=== PATIENT | male | born 1975 | race Caucasian/White ===

== ENCOUNTER 2023-01-09 10:16 | Emergency (ER) | payer OTHER, BC, SELFPAY ==
[2023-01-09 10:26] VITALS: BP 173/104; PULSE 100; RESP 18; TEMP 36.4; O2SAT 96; BMI 37.4
--- NOTE | 2023-01-09 10:46 | XR_ITS ---
FINAL REPORT CLINICAL HISTORY: twisting pain and swelling FINDINGS: Left knee Three views were obtained. There is no acute fracture or dislocation. The joint space is preserved. There is a small joint effusion. IMPRESSION: A small joint effusion. Reviewed, Interpreted and Dictated by Henrique Rocha III, MD Transcribed by Maryana Carrington Authenticated and [facility]
--- NOTE | 2023-01-09 10:46 | XR_ITS ---
FINAL REPORT CLINICAL HISTORY: L knee pain, traumatic FINDINGS: Left tibia fibula Two views were obtained. There is no acute fracture or dislocation. The joint spaces appear normal. No soft tissue abnormality is identified. IMPRESSION: No acute process. Reviewed, Interpreted and Dictated by Henrique Rocha III, MD Transcribed by Maryana Carrington Authenticated and [facility]
--- NOTE | 2023-01-09 10:46 | XR_ITS ---
FINAL REPORT CLINICAL HISTORY: L knee pain and swelling FINDINGS: Left femur Two views were obtained. There is no acute fracture or dislocation. The joint spaces appear normal. No soft tissue abnormality is identified. IMPRESSION: No acute process. Reviewed, Interpreted and Dictated by Henrique Rocha III, MD Transcribed by Maryana Carrington Authenticated and [facility]
--- NOTE | 2023-01-09 10:56 | PC.NURSE ---
Rounded on patient; no needs at this time. Family at BS. Call arvizu within reach
--- NOTE | 2023-01-09 11:06 | HMH.EDGENADL ---
Discharge Plan Disposition Patient Disposition: Home, Self-Care Chief Complaint: Extremity Injury, Lower Referrals Follow up/Referrals: Estuardo Trotter [Primary Care Provider] - See instructions Yohannes Contreras JR, MD [Physician] - See instructions (Left knee sprain, concern for meniscus injury) Activity Restrictions/Add. Instructions Additional Instructions/Restrictions: Follow-up with orthopedics, you can call the number here to follow-up with Dr. Contreras. Take Tylenol 1000 mg every 6 hours (4 times daily) and ibuprofen 400 mg every 6 hours (4 times daily) as needed with food and water to prevent GI upset and kidney damage. Call your family doctor to establish care for this visit to the emergency department and schedule follow-up within 48 hours to ensure improvement. If you have any worsening of your condition or any other concerning signs or symptoms, return to the emergency department or your primary care doctor for further evaluation. Weightbearing as tolerated on your left leg using crutches as needed Clinical Impressions Clinical Impression: Knee sprain Qualifiers: Encounter type: initial encounter Involved ligament of knee: unspecified ligament Laterality: left Qualified Code(s): S83.92XA - Sprain of unspecified site of left knee, initial encounter Discharge ED Provider: [facility] General Chief complaint: Extremity Injury, Lower Stated complaint: WC 01/09/23 08:30 left knee pain Time Seen by Provider: 01/09/23 10:23 Mode of Arrival: Ambulatory Source of Information: Patient Limitations: No Limitations Description of Symptoms (Recalled from ER Triage Doc. 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 Patient states that he was stepping down off of a horse trailer at work when he felt his knee twist, pop, immediate pain. He had swelling posterior aspect of his knee that extends down his leg. No evidence of outward signs of deformity or bruising. No numbness, tingling, weakness. Pain currently mild when not bearing weight, patient states pain is so severe he cannot bear weight when attempting to. Has not taken anything for pain. Related Data Allergies Allergy/AdvReac Type Severity Reaction Status Date / Time No Known Allergies Allergy Verified 08/17/19 00:34 [facility] Disclaimer: The information contained in this section may have been updated after the patient was seen, as this information can be updated by other users. Social History Smoking Status: Never smoker alcohol intake: never current occupational status: employed Travel in the last 8 weeks: None ROS Obtained: Yes All systems reviewed & no additional complaints except as documented Physical Exam General General appearance: alert, in no apparent distress and other ( ) Head Head exam: atraumatic and normocephalic Eye Eye exam: Present normal appearance, PERRL and EOMI ENT ENT exam: Present mucous membranes moist Neck Neck exam: Present normal inspection, full ROM and trachea midline Respiratory Respiratory exam: Absent respiratory distress, wheezes, stridor, accessory muscle use or prolonged expiratory phase Cardiovascular Cardiovascular exam: Present regular rate and normal rhythm Abdominal Exam Abdominal exam: Present soft; Absent distention, tenderness, guarding, rebound, rigidity or normal bowel sounds Extremities Exam Extremities exam: Present other (Tenderness and swelling about left knee. Swelling from knee downward. Structurally intact. Neurovascularly intact); Absent edema Neurological Exam Neurological exam: Present alert, oriented X3, CN II-XII intact and normal gait; Abs
[2023-01-09 12:55] VITALS: BP 158/99; PULSE 85; RESP 18; TEMP 36.7; O2SAT 97
== END 2023-01-09 12:58 | disposition home or self-care (01) ==
PROVIDERS: Emergency Provider Emergency Medicine; PCP Internal Medicine Cardiovascular Disease
DX: S83.92XA Sprain of unspecified site of left knee, initial encounter (principal); X50.0XXA Overexertion from strenuous movement or load, initial encounter; Y99.0 Civilian activity done for income or pay
CPT/HCPCS: 73552; 73562; 73590; 99284

== ENCOUNTER 2023-01-10 16:10 | Outpatient (RCR) | payer OTHER, SELFPAY | END 2023-01-10 17:00 | disposition home or self-care (01) | LOC: PT 16:10 | PROVIDERS: Visit Provider Orthopaedic Surgery | DX: S83.92XA Sprain of unspecified site of left knee, initial encounter (principal) | CPT/HCPCS: 97760 ==

== ENCOUNTER → 2023-01-28 10:59 | Outpatient (CLI) | payer OTHER, SELFPAY ==
--- NOTE | 2023-01-28 11:00 | MR_ITS ---
FINAL REPORT CLINICAL HISTORY: knee pain left knee pain work injury x 1 week ago pops , gives out pain around patella and medial side of knee COMPARISON: None FINDINGS: Multi planar MR imaging was performed of the left knee. The anterior and posterior cruciate ligaments are intact. The quadriceps and patellar tendons are intact. There is heterogeneous abnormal signal in the posterior horn and in the anterior horn of the medial meniscus without a discrete full-thickness tear seen. The lateral meniscus is intact. The medial and lateral collateral ligaments appear intact. The medial and lateral retinacula appear intact. There is no evidence of bone marrow edema or osteochondral defect. No evidence of soft tissue inflammatory reaction. There is a large popliteal cyst, measuring 8.9 cm in craniocaudal dimension. IMPRESSION: Heterogeneous abnormal signal in both the posterior horn and the anterior horn of the medial meniscus without a discrete full-thickness tear. Large popliteal cyst as described. Reviewed, Interpreted and Dictated by Jacoby Amin MD Transcribed by Maryam Verdin Authenticated and [facility]
== END ==
PROVIDERS: PCP Orthopaedic Surgery; Visit Provider Orthopaedic Surgery
DX: M25.562 Pain in left knee (principal); S83.92XA Sprain of unspecified site of left knee, initial encounter
CPT/HCPCS: 73721

== ENCOUNTER → 2023-02-21 15:06 | Outpatient (CLI) | payer OTHER, SELFPAY ==
--- NOTE | 2023-02-21 15:21 | ECG_ITS ---
APPROVED REPORT Exam: Resting ECG HR:67 bpm ECG Measurements Heart Rate 67 AXES [place] 135 P 53 QRSd 148 QRS -61 QT 389 T 34 QTc 404 Conclusion SINUS RHYTHM RIGHT BUNDLE BRANCH BLOCK [120+ ms QRS DURATION, UPRIGHT V1, 40+ ms S IN I/aVL/V4/V5/V6] POSSIBLE ANTERIOR MYOCARDIAL INFARCTION , OF INDETERMINATE AGE [30 ms Q WAVE IN V3/V4, OR R < 0.2 mV IN V4] INFERIOR MYOCARDIAL INFARCTION , OF INDETERMINATE AGE [40+ ms Q WAVE AND/OR ST/T ABNORMALITY IN II/aVF] ABNORMAL ECG UNCONFIRMED REPORT Electronically signed by : Juve Rivero MD 02/21/2023 15:52:15
--- NOTE | 2023-02-21 15:22 | XR_ITS ---
FINAL REPORT CLINICAL HISTORY: left knee pain COMPARISON: 01/09/2023 FINDINGS: Left knee Three views were obtained. There is no acute fracture or dislocation. The joint spaces appear normal. There is a small joint effusion. IMPRESSION: Small joint effusion. Reviewed, Interpreted and Dictated by Henrique Rocha III, MD Transcribed by Maryana Carrintgon Authenticated and [facility]
--- NOTE | 2023-02-21 15:22 | XR_ITS ---
FINAL REPORT CLINICAL HISTORY: cough FINDINGS: Two views of the chest were obtained. The heart size and pulmonary vascularity are within normal limits. The mediastinum is normal. No acute pulmonary abnormality is identified. There is no pneumothorax. The bony thorax is intact. IMPRESSION: No active cardiopulmonary disease. Reviewed, Interpreted and Dictated by Henrique Rocha III, MD Transcribed by Maryana Carrington Authenticated and [facility]
[2023-02-21 15:31] LABS: Basophils # 0.1 K/mm3 (0-0.2); Basophils % 0.7 % (0.1-2.0); Eosinophils # 0.6 K/mm3 (0.0-0.4); Eosinophils % 5.1 % (0.1-12.0); Hematocrit 49.4 % (42.0-52.0); Lymphocytes # 3.2 K/mm3 (0.7-4.5); Lymphocytes % 25.6 % (10-50); Mean Corpuscular HGB Conc 32.5 g/dL (31.8-35.4); Mean Corpuscular Hemoglobin 28.7 pg (27.0-31.2); Mean Corpuscular Volume 88.5 fl (80-94); Mean Platelet Volume 7.3 fl (7.4-10.4); Monocytes % 8.3 % (1.7-9.3); Neutrophils # 7.5 K/mm3 (1.8-7.8); Neutrophils % 60.3 % (37.0-80.0); Platelet Count 375 K/mm3 (142-424); Red Blood Count 5.58 M/mm3 (4.60-6.20); White Blood Count 12.4 K/mm3 (4.8-10.8)
[2023-02-21 16:29] LABS: Chloride 107 mmol/L (98-107); Potassium 4.2 mmoL/L (3.5-5.1); Sodium 142 mmol/L (136-145)
[2023-02-21 16:32] LABS: Alanine Aminotransferase 34 U/L (12-78); Albumin Level 3.9 g/dl (3.5-5.0); Albumin/Globulin Ratio 1.2 (1.1-1.8); Alkaline Phosphatase 100 U/L (38-126); Anion Gap 14.2 mEq/L (5-15); Aspartate Amino Transferase 27 U/L (17-59); Bilirubin,Total 0.3 mg/dl (0.2-1.3); Blood Urea Nitrogen 10 mg/dl (9-20); Carbon Dioxide 25 mmol/L (22.0-30.0); Estimated Glomerular Filt Rate 54 ml/min (>60); GFR (African American) 65 ML/MIN (>60); Globulin 3.3 g/dL (1.3-3.2); Total Protein,Serum 7.2 g/dl (6.3-8.2)
[2023-02-21 16:33] LABS: Calcium 9.5 mg/dl (8.4-10.2); Glucose 82 mg/dl (74-100)
== END ==
PROVIDERS: Visit Provider Orthopaedic Surgery
DX: S83.242A Other tear of medial meniscus, current injury, left knee, initial encounter (principal); S83.90XA Sprain of unspecified site of unspecified knee, initial encounter
CPT/HCPCS: 36415; 71046; 73562; 80053; 85025; 93005

== ENCOUNTER → 2023-02-25 12:02 | Day surgery (SDC) | payer OTHER, SELFPAY ==
[2023-02-24 12:37] VITALS: BMI 38.2
--- NOTE | 2023-02-25 13:02 | SUR.PREOP ---
EKG results discussed with anesthesia, Dr Jones, and patient. Determined that patient prefers further cardiac evaluation before proceeding with procedure. Patient is to follow up with family box packer in [facility] then Dr. Jones's office to reschedule when cleared.
== END ==
PROVIDERS: PCP Internal Medicine Cardiovascular Disease; Visit Provider Orthopaedic Surgery
PROC: (CPT 29870; principal; 2023-03-07 13:30)
DX: Z53.09 Procedure and treatment not carried out because of other contraindication (principal)

== ENCOUNTER 2023-03-07 11:54 | Day surgery (SDC) | payer OTHER, SELFPAY ==
[2023-03-07] VITALS (11 sets, daily range): BP systolic 124–157; BP diastolic 82–95; PULSE 71–89; RESP 14–20; TEMP 36.2–43; O2SAT 93–98
--- NOTE | 2023-03-07 12:31 | EXP.ANES.CKL ---
[facility] Disclaimer: The information contained in this section may have been updated after the patient was seen, as this information can be updated by other users. Medical History (Updated 03/07/23 @ 12:12 by Nancie Waddell RN) No significant past medical history Surgical History No significant past surgical history Family History Father Heart attack Mother Hole in colon Social History Smoking Status: Never smoker alcohol intake: never substance use type: denies use current occupational status: employed Travel in the last 8 weeks: None [facility] Anesthesia Checklist Patient Identification Patient Identification: Arm Band and Family Structural Data Admitted From: Home Planned Operative Procedure/s: Knee Artroscopy. Consent for Planned Operative Procedure(s) Verified: Yes Verified Documents: Surgical Consent and History and Physical NPO Status Verified Time NPO: 00:00 Additional verifications Patient : No Anesthesia Reactions: No Hx Blood Transfusions: No Blood Transfusion Reaction: No Cephalosporin Allergy: No Previous Colonoscopy: No Airway Assessment Mallampati Score:: Class II C-Spine Mobility Assessed: Yes TMJ Mobility Assessed: Yes Dentition: Good Dentition Neurological Assessment Level of Consciousness: Awake, Alert, Appropriate and Follows Commands Hx Seizures: No Numbness or tingling in extremities: No Anesthesia Plan Anesthesia Risk discussed: Yes ASA Class: I Anesthesia Type: General Preoperative Comments Pre-Operative Comments: No previous anesthesia or surgery. White coat syndrome. overweight.
--- NOTE | 2023-03-07 15:00 | P.OP_ITS ---
Date of procedure: 03/07/23 Pre-op Diagnosis:: Left knee medial meniscus tear Post-op Diagnosis:: Left knee medial meniscus tear Procedure performed:: Left knee arthroscopy with partial medial meniscectomy Surgeon:: Bernabe Jones MD Quality Technician [employer]erglass(s):: None FAMILY AND DIVORCE LEGAL ASSISTANT:: Robin Kapadia Anesthesia: GETA and local Estimated blood loss (mL): 5 Clinical Note:: Enrique is a pleasant 47-year-old male who hurt his left knee at work for the [employer]. He failed conservative treatment measures. MRI revealed posterior horn medial meniscus tear. We discussed all the risks, benefits and alternatives to left knee arthroscopy for partial medial meniscectomy and he agreed to proceed. Operative findings:: Left knee undersurface flap tear posterior horn medial meniscus and body of the medial meniscus. No significant chondromalacia and ligaments intact. Operative note:: The patient was seen in the preoperative holding area. The left knee was marked to confirm the correct operative site. He was seen by anesthesia. He received Ancef 2 g IV prophylactic antibiotics within 1 hour of incision time. He was brought back to the OR. General anesthesia induced without difficulty. Left lower extremity prepped and draped in the usual sterile fashion. Timeout performed to confirm left knee arthroscopy for patient Enrique Albarran. I made an anterior lateral viewing portal with an 11 blade scalpel. Arthroscope was introduced into the knee joint. I then made an anteromedial portal localizing this with a spinal needle. This incision was made with an 11 blade and dilated with a trocar. Diagnosed arthroscopy commenced. No significant chondromalacia of the patellofemoral compartment. Evaluation of the medial compartment revealed some minimal chondromalacia of the medial tibial plateau and this debrided with a shaver. There was no full-thickness cartilage loss. He had an undersurface flap tear of the posterior horn the medial meniscus and the body of the medial meniscus. This was treated with a partial medial meniscectomy resecting out this flap tear with a 3.5 mm shaver back to a smooth stable border. Also resected out the flap tear of the body the medial meniscus. Cruciate ligaments were seen be intact. He was placed in the [id number] position. Lateral meniscus was intact and minimal chondromalacia of the lateral compartment. At this time arthroscopy instruments were removed the joint. Arthroscopy fluid suctioned and drained from the joint. Portals were closed with 4-0 Monocryl subcuticular sutures. I injected 20 cc of half percent Naropin from the superolateral approach for local anesthetic. Sterile dressing was applied with Steri-Strips, 4 x 4's, ABD, soft roll and an Sky bandage. Anesthesia reversed without difficulty and transferred to recovery in stable condition. All sponge and needle counts correct x2. Postoperative plan: He may be weightbearing as tolerated with crutch assist as needed. Ice and elevation. He will have a cold compression unit. Oxycodone to take as needed for pain and aspirin for DVT prophylaxis. We will see him back in the office in 1 week and plan to initiate physical therapy at that time. He will be off work until further notice. In the meantime should call the [facility] orthopedic clinic with any questions or concerns. Tourniquet time (min): 0 Condition: stable Disposition: PACU Specimens:: None Complications:: None
--- NOTE | 2023-03-07 15:03 | P.PNANES_ITS ---
[facility] Anesthesia Record Part I Anesthesia Record I Intake, IV Amount: 1,300 Hydration: Adequate Estimated blood loss (mL): 5 Urine output (mL): 0 Blood Products used (#): none Blood Pressure: 124/82 SaO2: 93 Pulse Rate: 89 Airway Patency: Patent Respiratory Rate: 16 Temperature: 97.2 F Patient is:: Drowsy and Stable Stable to PACU at:: 15:00
--- NOTE | 2023-03-07 19:49 | EXP.ANES.II ---
[facility] Anesthesia Record Part II Anesthesia Record Part II Discharge Time: 15:30 Destination: Surgical Day Care (OP Surgery) PACU nurse assessment reviewed?: Yes Patient Condition:: Good Anesthesia Complications:: None Swallowing reflex intact?: Yes Airway Patency: Patent Cyanosis?: No Blood Pressure: 153/88 SaO2: 95 Respiratory Rate: 19 Pulse Rate: 77 Temperature: 97.4 F Mental Status: Alert & Oriented and Jail Memory Loss Pain level:: 4 Nausea and/or vomitting:: None Intake, IV Amount: 0 Hydration: Adequate
== END 2023-03-07 16:02 | disposition home or self-care (01) ==
PROVIDERS: PCP Family Medicine; Visit Provider Orthopaedic Surgery
PROC: (CPT 29870; principal; 2023-03-07 13:30)
DX: S83.242A Other tear of medial meniscus, current injury, left knee, initial encounter (principal); M25.562 Pain in left knee
CPT/HCPCS: 29881; 96374; J2405

== ENCOUNTER 2023-04-22 11:30 | Outpatient (RCR) | payer OTHER, SELFPAY ==
--- NOTE | 2023-03-25 10:56 | HMH.PTOPEV ---
PT Outpatient Evaluation Rehab PT Outpatient Evaluation Start: 03/25/23 10:03 Freq: Status: Active Protocol: Document 03/25/23 10:03 JOSEPH (Rec: 03/25/23 10:56 JOSEPH [id number]) E-signed By Rosa Elena Ramos, PT Outpatient Therapy Subjective History Subjective History Pt is a 47 y/o male who reports to PT s/p L knee scope partial medial menisectomy performed on 03/07/23. 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 Pt denies complications following surgery. Pt reports he has been gradually increasing his weight bearing and uses crutches for long distance walking such as to the grocery store. Pt denies use of AD with household ambulation although does experience some discomfort of the anterior knee with this. Pt denies swelling or paresthesia. Pt does report stiffness and a painful pop when he bends the knee. Pt reports he has 10 steps inside the home to get to his bedroom which he has to use a step to pattern to traverse. Pt reports he is favoring the right side and notices a slight limp.Pt reports he returns to his surgeon on April 09 to discuss return to work. Occupation: Maintenance for [employer] Job description: squatting, kneeling, stair/ladder climbing, prolonged walking/ standing, heavy lifting Medical History: irregular heart rhythm, high blood pressure New diagnosis of cancer in past 12 No months? Chief Complaint Pain,Stiff,Clicks Symptom Type Ache,Dull Symptoms Relieved By Ice Symptoms Aggravated By Standing,Physical Activity, Twisting,Walking Prior Functional Limitations None Current Functional Limitations Lifting,Standing,Squatting, Recreation Activity,Walking, Stairs Symptom Description Constant but Variable Level of pain today (0-10) 2 Pain scale - at its best (0-10) 2 Pain scale - at its worst (0-10) 5 Hip/Knee Eval Gait Observation General Gait Pattern Observation Antalgic Gait,Decrease Weight Bear (L) Palpation Tenderness left Knee Palpation Finding Tenderness Knee Palpation Overall Comment medial, lateral and anterior knee complex 2/4 MMT Hip Flexion Strength Grade 5 Normal Hip Abduction Strength Grade 4 Good Hip Adduction Strength Grade 4 Good Hip Extension Strength Grade 4 Good Knee Extension Strength Grade 4 Good Knee Flexion Strength Grade 4 Good ROM Knee Extension Active Range of Motion ( 3 degrees) Knee Extension Passive Range of Motion ( 0 degrees) Knee Flexion Active Range of Motion ( 100 degrees) Sensation Comment equal and intact to light touch sensation Effusion joint effusion knee exam standard left Mid - Patellar Circumerential Measure ( 42 cm) Outpatient Therapy Assessment Impairments Problems/Impairmments Palpation Tenderness,Impaired Range of Motion,Impaired Strength,Impaired Gait Pattern ,Impaired Walking,Impaired Standing,Impaired Lifting, Impaired Stair Climbing, Impaired Incline Stepping, Impaired Stepping on Uneven Surface,Impaired Squatting, Impaired Running,Impaired Jumping,Impaired Work Activities,Increased Edema, Subjective C/O Pain,Impaired Self Care/Self Management Prognosis Rehab Potential Good Clinical Impression Consistent with Diagnosis Yes Short Term Goals Number of Weeks 3 Increase Range of Motion Yes: Improve L knee ext to 0 and flex to at least 110 Improve Gait Pattern without Assistive Yes: non-antalgic to decrease Device fall risk Barley Steeper Goals Number of Weeks 6 Decreased Palpation Tenderness Yes: 0-1/4 TTP of L knee complex Increase Range of Motion Yes: Improve L knee AROM to 0- 120 Increase Strength Yes: Improve LLE MMT to 5/5 to assist with occupational activities Increase Ability to Walk Yes: .5 mile on level & unlevel terrain with pain 2/10 or less to assist w/ work Increase Ability to Stand Yes: 30 minutes with pain 2/10 or less to assist w/ work Improve Ability to Climb Stairs Yes: 1 flight reciprocally to assist with household and work navigation Improve Ability to Step on Uneven Yes Surfaces Improve Ability to Squat Yes Improve Tolerance to Work Activities Yes Decrease Edema Yes: 40 cm mid patellar girth equal to RLE Decrease Subjective C/O Pain Yes: Improve pain at worst to 2-3/10 to improve overall QOL Improve Self Care/Self Management Yes Patient to be Ind w/ Advanced HEP Yes Outpatient Therapy Plan of Care Treatment Plan May Include Therapeutic Exercise Including Home Yes Exercise Program Manual Therapy Techniques Yes Neuromuscular Re-education Yes Therapeutic Activities to Return to Yes Previous Functional/Work Level Gait Training Yes ADL/Self Care Education Yes Dry Needling Yes Thermal Modalities Yes Electrical Stimulation Yes Ultrasound/Phonophoresis Yes Iontophoresis Yes Orthotics/Bracing/Splinting Yes Vasopneumatic Compression Pump Yes Massage Yes Manual Lymphatic Drainage Yes Wound Care Yes Eval/Re-Eval Yes Frequency Times per week 2 Duration Number of Weeks 4-6 Addendums This patient is a candidate for social No or vocational rehab? Patient/Guardian verbally acknowledges Yes understanding of treatment program and consents to further treatment? Patient/Guardian verbally acknowledges Yes understanding of diagnosis, prognosis and goals for treatment? Eval Complexity PT Charges 00782 - Low Complexity Shoulder/Elbow Eval Shoulder Objective Measurements Elbow Objective Measurements PHYSICIAN CERTIFICATION: I certify the specified therapy services for Enrique Dylon Deion are required, authorized, and reviewed every 30 days.
--- NOTE | 2023-04-22 12:03 | HMH.RHREAS ---
Rehab Reassessment Rehab OP Re-assessment Start: 03/25/23 10:03 Freq: Status: Active Protocol: Document 04/22/23 11:47 JOSEPH (Rec: 04/22/23 12:02 CHEYPartha [id number]) E-signed By Rosa Elena Ramos PT Lower Extremity Functional Index Activities Today, do you or would you have any difficulty at all with: a.Any of your usual work, housework or No difficulty school activities b. Your usual hobbies, recreational or No difficulty sporting activities c. Getting into or out of the bath No difficulty d. Walking between rooms No difficulty e. Putting on your shoes or socks No difficulty f. Squatting No difficulty g. Lifting an object, like a bag of No difficulty groceries from the floor h. Performing light activities around No difficulty your home i. Performing heavy activities around No difficulty your home j. Getting into or out of a car No difficulty k. Walking 2 blocks No difficulty l. Walking a mile No difficulty m. Going up or down 10 stairs (about 1 No difficulty flight of stairs) n. Standing for 1 hour No difficulty o. Sitting for 1 hour No difficulty p. Running on even ground No difficulty q. Running on uneven ground No difficulty r. Making sharp turns while running fast No difficulty s. Hopping No difficulty t. Rolling over in bed No difficulty LEFI Score Lower Extremity Functional Index Score 80 Rehab Re-assessment Subjective Subjective Pt reports he feels 100% improved since startng PT. Pt reports minimal tenderness in the left knee around the incision such as with kneeling otherwise no pain. Pt denies swelling. Pt reports he has been walking 1.5 miles everyday and has to go up stairs multiple times a day in his home without issues. Pt reports he is supposed to return to his surgeon on 05/14 and return to work on 05/15. Pt reports he has a bike and a treadmill at home he plans on continuing to use once discharged from PT. Objective Objective Notes No TTP of L knee Gait: non-antalgic without AD L knee AROM: 0-120 LLE MMT: 5/5 L knee girt: 39.5 cm Assessment Progress Assessment Progressing as Expected Assessment Notes Pt has attended 8 PT sessions consisting of aerobic exercise , knee mobility, LE stretching /strengthening, and functional strengthening with good tolerance. Pt demonstrated improved knee AROM, edema, pain and strength this date compared to the initial evaluation. Pt demonstrated good tolerance to progressed WB activities to assist with return to work as well. Pt has met all PT goals and is motivated to continue independent exercise to further assist with return to work therefore is appropriate to discharge to independent HEP. Patient goals met ST/2 LT/13 Goals Not Met n/a Revised Goals n/a Plan Plan D/c to independent HEP Time and Billing Re-Eval Time 10 Re-Eval Billing Units 1 PHYSICIAN CERTIFICATION: I certify the specified therapy services for Enrique Albarran are required, authorized, and reviewed every 30 days.
== END 2023-04-22 12:15 | disposition home or self-care (01) ==
LOC: PT 11:30
PROVIDERS: Visit Provider Orthopaedic Surgery
DX: M25.562 Pain in left knee (principal); Z98.890 Other specified postprocedural states; S83.242A Other tear of medial meniscus, current injury, left knee, initial encounter
CPT/HCPCS: 97110; 97163; 97164; 97530